=== PATIENT | female | born 1965 | race Caucasian/White ===

== ENCOUNTER 2020-02-08 13:42 | Emergency (ER) | payer OTHER ==
[~2020-02-08] VITALS: Ht 167.6 cm; Wt 113.4 kg
--- NOTE | 2020-02-08 14:00 | NUR ---
"Tripped and fell in my kitchen yesterday landed on my left knee." Patient noted to have bruising on left knee. Needs attended, kept comfortable.
--- NOTE | 2020-02-08 15:46 | NUR ---
Patient ambulatory with steady gait. No dsitress noted. Patient discharged to home in stable condition. Written and verbal after care instructions given. Patient verbalizes understanding of instruction.
[2020-02-08 15:52] VITALS: BP 126/84
== END 2020-02-08 15:52 | disposition home or self-care (01) ==
LOC: ER 13:42
DX: S80.02XA Contusion of left knee, initial encounter (principal); M19.90 Unspecified osteoarthritis, unspecified site; Z98.890 Other specified postprocedural states; W01.0XXA Fall on same level from slipping, tripping and stumbling without subsequent striking against object, initial encounter; Y93.89 Activity, other specified; Y92.89 Other specified places as the place of occurrence of the external cause; Y99.8 Other external cause status
CPT/HCPCS: 73564-TC

== ENCOUNTER 2024-12-08 17:12 | Emergency (ER) | payer OTHER ==
[~2024-12-08] VITALS: Ht 165.1 cm; Wt 86.2 kg
[2024-12-08 17:54] LABS: APPEARANCE,URINE CLEAR (CLEAR); BILIRUBIN,URINE NEGATIVE (NEGATIVE); BLOOD, URINE 2+ Ery/uL (NEGATIVE); KETONES,URINE NEGATIVE (NEGATIVE); LEUKOCYTE ESTERASE ,URINE 1+ (NEGATIVE); NITRITE, URINE NEGATIVE (NEGATIVE); PROTEIN,URINE NEGATIVE (NEGATIVE); UGLUCOSE NEGATIVE (NEGATIVE); UROBILINOGEN,URINE 0.2 EU/dL (0.2)
[2024-12-08 17:55] LABS: COLOR,URINE STRAW (YELLOW)
[2024-12-08 18:27] LABS: WBC,URINE 21-50 /HPF (0-3)
[2024-12-08 18:28] LABS: ADD URINE CULTURE YES; BACTERIA,URINE Few /HPF (None Seen); SQUAMOUS EPITHELIAL CELL,UR Rare /HPF (None Seen)
[2024-12-08] MEDS ORDERED: CEPH-570 PO (18:48)
[2024-12-08 18:53] VITALS: BP 128/74; TEMP 98.5; O2SAT 98
== END 2024-12-08 18:53 | disposition home or self-care (01) ==
LOC: ER 17:14
DX: N39.0 Urinary tract infection, site not specified (principal); R30.0 Dysuria
CPT/HCPCS: 81001; 87086-TC; 87186-TC

== ENCOUNTER 2025-02-13 13:31 | Emergency (ER) | payer OTHER ==
[~2025-02-13] VITALS: Ht 165.1 cm; Wt 86.2 kg
[~2025-02-13 13:31] MED LIST: CEPH-570 PO
[2025-02-13] MEDS ORDERED: ACETAMINOPHEN ES 500 MG TABLET ONE (14:57)
[2025-02-13] MEDS: IV NS 0.9% 1,000 ML BAG IV ONE (15:02)
[2025-02-13] MEDS: ACETAMINOPHEN ES 500 MG TABLET PO ONE (15:03)
[2025-02-13 15:08] LABS: BASOPHILS # (AUTO) 0.1 K/uL (0.0-0.2); EOSINOPHILS % (AUTO) 0.7 % (0.0-6.0); HEMATOCRIT 40 % (33-45); HEMOGLOBIN 13.6 g/dL (11.5-14.8); LYMPHOCYTES # (AUTO) 1.8 K/uL (0.8-4.8); LYMPHOCYTES % (AUTO) 34.7 % (20.0-44.0); MEAN CORPUSCULAR HEMOGLOBIN 29 PG (26.0-33.0); MEAN CORPUSCULAR HGB CONC 34 g/dl (31.0-36.0); MEAN CORPUSCULAR VOLUME 84 fL (82-100); MONOCYTES # (AUTO) 0.4 K/uL (0.1-1.30); MONOCYTES % (AUTO) 7.1 % (2.0-12.0); NEUTROPHILS % (AUTO) 56.5 % (43.0-81.0); PLATELET COUNT (AUTO) 247 K/uL (150-450); RED BLOOD CELL COUNT(AUTO) 4.74 MIL/uL (4.0-5.2); RED CELL DISTRIBUTION WIDTH 13.4 % (11.5-15.0); WHITE BLOOD COUNT (AUTO) 5.2 K/uL (4.3-11.0)
[2025-02-13 15:18] LABS: CREATININE 1.1 mg/dL (0.6-1.3); POTASSIUM 4.2 mmol/L (3.5-5.1)
[2025-02-13] MEDS ORDERED: ONDA4TAB5 PO (16:47)
[2025-02-13 17:08] VITALS: BP 155/80; TEMP 98.5; O2SAT 98
== END 2025-02-13 17:09 | disposition home or self-care (01) ==
LOC: ER 13:33
DX: B34.9 Viral infection, unspecified (principal); Z87.39 Personal history of other diseases of the musculoskeletal system and connective tissue; Z20.822 Contact with and (suspected) exposure to COVID-19
CPT/HCPCS: 99284; 96360; 71045; 87426; 87804 ×2; 85025; 80048; 36415; J7030